=== PATIENT | male | born 1975 | race Caucasian/White ===

== ENCOUNTER 2022-07-29 13:11 | Inpatient (IN) | payer OTHER ==
[~2022-07-29] VITALS: Ht 172.7 cm; Wt 86.6 kg
[2022-07-29] MEDS ORDERED: Ventolin/Prove6.7 GM INH (18:20)
[2022-07-29] MEDS ORDERED: ALLOPURINOL100 M1 PO (18:20)
[2022-07-29] MEDS ORDERED: MONT10T PO (18:20)
[2022-07-29] MEDS ORDERED: LISI20 PO (18:21)
[2022-07-29] MEDS ORDERED: ZOLOFT50 MG PO (18:21)
[2022-07-29] MEDS ORDERED: HYDCHL25 PO (18:21)
[2022-07-29 19:54] LABS: Source, Urine Clean Catch
[2022-07-29 19:57] LABS: Appearance, Urine Clear (Clear); Bilirubin, Urine Neg (Neg); Blood, Urine Neg (Neg); Color, Urine Yellow (P-Yellow); Glucose Qualitative, Urine Neg (Neg); Ketones, Urine 2+ (Neg); Leukocyte Esterase, Urine Neg (Neg); Nitrite, Urine Neg (Neg); Protein, Urine Neg (Neg); Urobilinogen, Urine NORM (Normal)
[2022-07-30 05:39] LABS: Hematocrit 38.7 % (37.0-53.0); Hemoglobin 13.2 g/dL (13.5-17.5); Mean Corpuscular HGB 30.6 pg (26.0-34.0); Mean Corpuscular HGB Conc 34.1 g/dL (31.5-36.5); Mean Corpuscular Volume 90 fL (80-100); Mean Platelet Volume 9.9 fL (9.1-12.4); Platelet Count 225 K/mm3 (150-400); RDW Coefficient Variation 13.3 % (11.7-14.2); RDW Standard Deviation 44.1 fL (35.1-46.3); Red Blood Cell Count 4.31 M/mm3 (4.30-5.90); White Blood Cell Count 11.62 K/mm3 (4.00-11.30)
[2022-07-30 06:12] LABS: Bun/Creatinine Ratio 24.3 (12.0-20.0); Calcium, Blood 10.2 mg/dL (8.5-10.1); Creatinine, Blood 4.08 mg/dL (0.60-1.20); Potassium, Blood 4.4 mmol/L (3.5-5.5)
--- NOTE | 2022-07-30 07:32 | NUR ---
Rn summary: Patient is alert and oriented. Pt is very pleasant and cooperative. Pt has not been able to keep food or fluids down for a couple of weeks. Abdomen is rounded and sl distended, pt is constipated and has passed some gas this am. Patient feels better now he has had some IV fluids. Has not needed any pain meds. Pt has been voiding adequate ammounts. oriented to room, call light in reach.
[2022-07-30 17:07] LABS: Bun/Creatinine Ratio 24.9 (12.0-20.0); Calcium, Blood 9.7 mg/dL (8.5-10.1); Creatinine, Blood 3.17 mg/dL (0.60-1.20); Potassium, Blood 4.7 mmol/L (3.5-5.5)
--- NOTE | 2022-07-30 17:18 | NUR ---
SHIFT SUMMARY PATIENT HAD ONE EPISODE OF EMESIS AFTER DRINKING WATER. DECLINES ZOFRAN, REPORTS NAUSEA ONLY OCCURS WITH PO INTAKE. ALERT AND INDEPENDENT TO BATHROOM. USES URINAL INDEPENDENTLY AT BEDSIDE. ABDOMEN MILDLY DISTENDED. NO BM TODAY. UNABLE TO TOLERATE MIRALAX. MAINTENANCE FLUIDS CHANGED TO LR X2 BAGS. PLEASANT AND COOPERATIVE WITH CARE.
--- NOTE | 2022-07-31 04:32 | NUR ---
Shift Summary No c/o of N/V or pain. Pt drinking clear liquids and tolerating them well. No abdominal tenderness. Rcvd 2/2 bags of LR. States he had a loose watery BM last AM. Having difficulty sleeping. VSS, no acute events, pleasant and cooperative with care.
[2022-07-31 12:09] LABS: Bun/Creatinine Ratio 26.9 (12.0-20.0); Creatinine, Blood 2.01 mg/dL (0.60-1.20); Potassium, Blood 4.7 mmol/L (3.5-5.5)
[2022-07-31] MEDS ORDERED: ONDA4ODT MM (12:20)
--- NOTE | 2022-07-31 18:12 | NUR ---
PT AWAKE AT START OF SHIFT, REPORTING NOT MUCH SLEEP WHILE IN HOSPITAL. A&O, PLEASANT AND CO-OP. INDEPENDENT IN AND TO BTM. PT ADMITTED FOR [facility] WITH N/V PRIOR TO ADMISSION. KIDNEY FUNCTION IMPROVING SLOWLY. DR WASHINGTON IN TO SEE PT IN AM. NEW ORDERS PLACED. IVF'S RESTARTED. LABS DRAWN LATER IN DAY SHOWING CONTINUED IMPROVED RENAL FUNCTION. D/C ORDERS PLACED. PT TO F/U WITH PCP IN 1-2 WEEKS AND HAVE LABS RECKED IN 1 WEEK. COMPLETE D/C INSTRUCTIONS REVIEWED WITH PT; VERBALIZED UNDERSTANDING. MEDS FAXED TO [facility] PER PT REQUEST. PT'S HERE THIS AFTERNOON TO TAKE PT HOME. NOTE FOR PT'S WORK OBTAINED FROM DR WASHINGTON AND GIVEN TO PT; COPY MADE AND PLACED ON CHART. PT ASSISTED OUT VIA W/C, WITH AT SIDE TO TAKE HIM HOME.
== END 2022-07-31 17:17 | disposition home or self-care (01) | DRG 683 ==
LOC: ER 13:11 → MEDS 17:59 → ERHOLD 17:59 → MEDS 17:59
PROVIDERS: Family Medicine; Hospitalist; Physician Assistant; ADMIT Internal Medicine
DX: N17.9 Acute kidney failure, unspecified (principal); E87.1 Hypo-osmolality and hyponatremia; I10 Essential (primary) hypertension; M10.9 Gout, unspecified; J45.909 Unspecified asthma, uncomplicated; F32.A Depression, unspecified; E86.0 Dehydration; A08.4 Viral intestinal infection, unspecified; F10.20 Alcohol dependence, uncomplicated; R11.2 Nausea with vomiting, unspecified; Z79.899 Other long term (current) drug therapy
CPT/HCPCS: 36415; 74018; 76705; 76770; 80048; 81003; 83690; 85027; 99285-25; A9270; C9113; J1650; J7030; J7120

== ENCOUNTER → 2022-07-29 | Outpatient (CLI) | payer OTHER ==
[~2022-07-29] MED LIST: ALLOPURINOL100 M1 PO; HYDCHL25 PO; LISI20 PO; MONT10T PO; ONDA4ODT MM; Ventolin/Prove6.7 GM INH; ZOLOFT50 MG PO
[2022-07-29 11:47] LABS: BASOPHILS ABSOLUTE AUTO 0.07 K/mm3 (0.00-0.23); BASOPHILS PERCENT AUTO 1 % (0-2); EOSINOPHILS ABSOLUTE AUTO 0.07 K/mm3 (0.00-0.68); EOSINOPHILS PERCENT AUTO 1 % (0-6); Hematocrit 43.2 % (37.0-53.0); Hemoglobin 15.3 g/dL (13.5-17.5); IMMATURE GRAN ABSOLUTE AUTO 0.13 K/mm3 (0.00-0.10); IMMATURE GRAN PERCENT AUTO 1 % (0-1); LYMPHOCYTES ABSOLUTE AUTO 1.59 K/mm3 (0.84-5.20); LYMPHOCYTES PERCENT AUTO 11 % (21-46); MONOCYTES ABSOLUTE AUTO 0.74 K/mm3 (0.16-1.47); MONOCYTES PERCENT AUTO 5 % (4-13); Mean Corpuscular HGB Conc 35.4 g/dL (31.5-36.5); Mean Corpuscular Volume 90 fL (80-100); Mean Platelet Volume 9.7 fL (9.1-12.4); NEUTROPHILS ABSOLUTE AUTO 11.89 K/mm3 (1.96-9.15); NEUTROPHILS PERCENT AUTO 82 % (41-73); Platelet Count 280 K/mm3 (150-400); RDW Coefficient Variation 13.5 % (11.7-14.2); RDW Standard Deviation 44.8 fL (35.1-46.3); Red Blood Cell Count 4.78 M/mm3 (4.30-5.90); White Blood Cell Count 14.49 K/mm3 (4.00-11.30)
[2022-07-29 11:56] LABS: Albumin, Blood 4.8 g/dL (3.4-5.0); Albumin/Globulin Ratio 1.1 (0.8-1.8); Bilirubin, Total 0.7 mg/dL (0.1-1.0); Bun/Creatinine Ratio 17.7 (12.0-20.0); Calcium, Blood 11.3 mg/dL (8.5-10.1); Creatinine, Blood 5.82 mg/dL (0.60-1.20); Globulin, Blood 4.4 g/dL (2.2-4.0); Potassium, Blood 4.2 mmol/L (3.5-5.5); Total Protein, Blood 9.2 g/dL (6.4-8.2)
== END | disposition home or self-care (01) ==
LOC: LAB SHORT 11:42 → LAB 11:42
PROVIDERS: Family Medicine
DX: R10.9 Unspecified abdominal pain (principal)
CPT/HCPCS: 80053; 83690; 85025

== ENCOUNTER 2022-12-14 20:40 | Emergency (ER) | payer OTHER ==
[~2022-12-14] VITALS: Ht 172.7 cm; Wt 102.1 kg
[2022-12-14 21:32] LABS: BASOPHILS ABSOLUTE AUTO 0.03 K/mm3 (0.00-0.23); BASOPHILS PERCENT AUTO 0 % (0-2); EOSINOPHILS ABSOLUTE AUTO 0.87 K/mm3 (0.00-0.68); EOSINOPHILS PERCENT AUTO 6 % (0-6); Hematocrit 44.7 % (37.0-53.0); Hemoglobin 14.2 g/dL (13.5-17.5); IMMATURE GRAN ABSOLUTE AUTO 0.09 K/mm3 (0.00-0.10); IMMATURE GRAN PERCENT AUTO 1 % (0-1); LYMPHOCYTES ABSOLUTE AUTO 1.79 K/mm3 (0.84-5.20); LYMPHOCYTES PERCENT AUTO 13 % (21-46); MONOCYTES ABSOLUTE AUTO 1.09 K/mm3 (0.16-1.47); MONOCYTES PERCENT AUTO 8 % (4-13); Mean Corpuscular HGB 25.8 pg (26.0-34.0); Mean Corpuscular HGB Conc 31.8 g/dL (31.5-36.5); Mean Corpuscular Volume 81 fL (80-100); Mean Platelet Volume 10.6 fL (9.1-12.4); NEUTROPHILS ABSOLUTE AUTO 10.08 K/mm3 (1.96-9.15); NEUTROPHILS PERCENT AUTO 72 % (41-73); Platelet Count 195 K/mm3 (150-400); RDW Coefficient Variation 13.6 % (11.7-14.2); RDW Standard Deviation 39.9 fL (35.1-46.3); Red Blood Cell Count 5.51 M/mm3 (4.30-5.90); White Blood Cell Count 13.95 K/mm3 (4.00-11.30)
[2022-12-14 21:53] LABS: Albumin, Blood 3.4 g/dL (3.4-5.0); Bilirubin, Total 0.3 mg/dL (0.1-1.0); Calcium, Blood 9.3 mg/dL (8.5-10.1); Creatinine, Blood 1.15 mg/dL (0.60-1.20); Globulin, Blood 3.5 g/dL (2.2-4.0); Potassium, Blood 4.6 mmol/L (3.5-5.5); Total Protein, Blood 6.9 g/dL (6.4-8.2)
[2022-12-14 23:00] VITALS: BP 126/91
== END 2022-12-15 00:10 | disposition home or self-care (01) ==
LOC: ER 20:40
PROVIDERS: Emergency Medicine
DX: M79.89 Other specified soft tissue disorders (principal); J90 Pleural effusion, not elsewhere classified; Z79.899 Other long term (current) drug therapy; I10 Essential (primary) hypertension; M10.9 Gout, unspecified; J45.909 Unspecified asthma, uncomplicated
CPT/HCPCS: 36415; 71045; 80053; 83880; 85025; 93005; 93010; 93970; 99284-25